=== PATIENT | female | born 1970 | race Two or more races ===

== ENCOUNTER 2017-08-27 18:35 | Emergency (ER) | payer MEDICAID ==
[~2017-08-27] VITALS: Ht 160 cm; Wt 80.7 kg
--- NOTE | 2017-08-27 18:41 | NUR ---
BB [employer]ILY [employer]BER FOR SOB, COUGH, FEVER, LEFT EAR PAIN X 2 DAYS, PT TOOK TYLENOL AT 0300PM. NOTED WITH ORAL TEMP- 100.7 'F. PATIENT AMBULATORY TO ED BED 08. NAD. VSS RR EVEN AND UNLABORED. SKIN IS WARM AND NON DIAPHRORETIC. PENDING ER MD EVALUATION
--- NOTE | 2017-08-27 19:05 | NUR ---
PT CAME FROM C/O SHORTNESS OF BREATH/ASTHMA, A/O X 4, BREATHING EVEN, LUNG SOUNDS DIMINISHED BILATERALLY POSTERIOR FIELD, INSP/EXPR WHEEZING HEARD, SKIN WARM/DRY. NO C/O PAIN AT THIS TIME
[2017-08-27] MEDS ORDERED: methylPREDNISolone SOD SUCC 125 MG/2ML VIAL ONE (19:07)
[2017-08-27] MEDS: IPRATROPIUM NEB FS 0.5 MG/2.5 ML AMPUL.NEB NEB ONE (19:07)
[2017-08-27] MEDS: ALBUTEROL FS 2.5 MG/3 ML VIAL.NEB CONTNEB ONE (19:07)
[2017-08-27 19:17] LABS: BASOPHILS % (AUTO) 0.5 % (0.0-2.0); EOSINOPHILS # (AUTO) 0.1 /CMM (0.0-0.7); EOSINOPHILS % (AUTO) 2.5 % (0.0-6.0); HEMATOCRIT 38 % (33-45); HEMOGLOBIN 12.9 g/dL (11.5-14.8); LYMPHOCYTES # (AUTO) 0.8 /CMM (0.8-4.8); LYMPHOCYTES % (AUTO) 14.2 % (20.0-44.0); MEAN CORPUSCULAR HEMOGLOBIN 28 PG (26.0-33.0); MEAN CORPUSCULAR HGB CONC 34 g/dl (31.0-36.0); MEAN CORPUSCULAR VOLUME 83 fL (82-100); MONOCYTES # (AUTO) 0.8 /CMM (0.1-1.30); MONOCYTES % (AUTO) 14.1 % (2.0-12.0); NEUTROPHILS # (AUTO) 4.1 /CMM (1.8-8.9); NEUTROPHILS % (AUTO) 68.7 % (43.0-81.0); PLATELET COUNT (AUTO) 198 /CMM (150-450); RDW COEFFICIENT OF VARIATION 13.4 (11.5-15.0); RED BLOOD CELL COUNT(AUTO) 4.54 MIL/uL (4.0-5.2); WHITE BLOOD COUNT (AUTO) 5.8 K/uL (4.3-11.0)
[2017-08-27] MEDS ORDERED: IPRATROPIUM NEB FS 0.5 MG/2.5 ML AMPUL.NEB ONE (19:17)
[2017-08-27] MEDS ORDERED: ALBUTEROL FS 2.5 MG/3 ML VIAL.NEB ONE (19:17)
[2017-08-27] MEDS: methylPREDNISolone SOD SUCC 125 MG/2ML VIAL IV ONE (19:18)
[2017-08-27 19:28] LABS: CALCIUM, SERUM 8.7 mg/dL (8.5-10.1); CREATININE 0.7 mg/dL (0.6-1.3); POTASSIUM 3.3 mmol/L (3.5-5.1)
--- NOTE | 2017-08-27 19:30 | NUR ---
PT BECAME LETHARGIC INCREASED DIAPHORESIS, HR 71 BP 76/45, ER MD HU MADE AWARE, ORDERS TO FOLLOW
[2017-08-27] MEDS: IV NS 0.9% 1,000 ML BAG IV ONE (19:31)
--- NOTE | 2017-08-27 19:31 | NUR ---
POCT BLOOD GLUCOSE 110
--- NOTE | 2017-08-27 20:12 | NUR ---
patient family refuse ct brain wo dr duran aware
--- NOTE | 2017-08-27 20:20 | NUR ---
ER MD HU BEDSIDE TO EXPLAIN TO PT DESIRE TO ADMIT, PT REFUSE TO BE ADMITTED. PT EDUCATED BY MD ABOUT RISKS OF LEAVING AGAINST MEDICAL ADVISE, PT VERBALIZED UNDERSTANDING, AMA FORM SIGNED.
--- NOTE | 2017-08-27 20:23 | NUR ---
PT SITTING IN BED, BREATHING UNLABORED, SKIN WARM/DIAPHORETIC, NO C/O PAIN, PT UPDATED ON PLAN OF CARE TO ADMIT
--- NOTE | 2017-08-27 20:26 | NUR ---
CALLED NURSING SUP. FOR MS BED
[2017-08-27 20:37] VITALS: BP 126/71
[2017-08-27 21:04] LABS: TROPONIN I < 0.017 ng/mL (0.00-0.056)
[2017-08-27 21:09] LABS: B-TYPE NATRIURETIC PEPTIDE 29 PG/ML (0-125); INR 0.93 (0.87-1.13)
== END 2017-08-27 19:04 | disposition left against medical advice (07) ==
LOC: ER 18:38
DX: J45.901 Unspecified asthma with (acute) exacerbation (principal); Z86.73 Personal history of transient ischemic attack (TIA), and cerebral infarction without residual deficits; Z88.6 Allergy status to analgesic agent
CPT/HCPCS: 36415; 71045-TC; 80048-TC; 82962-TC; 83605-TC; 83880; 84484-TC; 85025-TC; 85730-TC; A4606; J2930; Z7610

== ENCOUNTER 2022-03-20 15:58 | Emergency (ER) | payer MEDICAID, OTHER ==
[~2022-03-20] VITALS: Ht 160 cm; Wt 98.4 kg
--- NOTE | 2022-03-20 16:00 | NUR ---
FROILAN 89 FEELING WEAK; PT WAS CLEANING A HOUSE AND FELT HOT, FOUND ON THE FLOOR, PT STATES HER HEAD HURTS, BLOOD SUGAR 119. TO ER BED 10.
--- NOTE | 2022-03-20 16:08 | NUR ---
IV LINE ESTABLISHED; BLOOD DRAWN AND SENT TO LAB.
--- NOTE | 2022-03-20 16:11 | NUR ---
TECH AT BEDSIDE FOR EKG
[2022-03-20] MEDS: IV NS 0.9% 1,000 ML BAG IV ONE (16:16)
[2022-03-20] MEDS ORDERED: TOPI25TA49 PO (16:17)
[2022-03-20] MEDS ORDERED: LEVE500T20 PO (16:17)
--- NOTE | 2022-03-20 16:20 | NUR ---
PT TAKEN TO RADIOLOGY VIA ELEANOR
[2022-03-20 16:27] LABS: BASOPHILS % (AUTO) 0.4 % (0.0-2.0); EOSINOPHILS % (AUTO) 2.5 % (0.0-6.0); HEMATOCRIT 39 % (33-45); HEMOGLOBIN 12.4 g/dL (11.5-14.8); LYMPHOCYTES # (AUTO) 1.9 K/uL (0.8-4.8); LYMPHOCYTES % (AUTO) 21.4 % (20.0-44.0); MEAN CORPUSCULAR HGB CONC 32 g/dl (31.0-36.0); MEAN CORPUSCULAR VOLUME 83 fL (82-100); MONOCYTES # (AUTO) 0.6 K/uL (0.1-1.30); MONOCYTES % (AUTO) 6.9 % (2.0-12.0); NEUTROPHILS # (AUTO) 6.2 K/uL (1.8-8.9); NEUTROPHILS % (AUTO) 68.8 % (43.0-81.0); PLATELET COUNT (AUTO) 217 K/uL (150-450); RED BLOOD CELL COUNT(AUTO) 4.67 MIL/uL (4.0-5.2); WHITE BLOOD COUNT (AUTO) 8.9 K/uL (4.3-11.0)
--- NOTE | 2022-03-20 16:30 | NUR ---
PT BACK FROM RADIOLOGY
[2022-03-20 16:41] LABS: CALCIUM, SERUM 8.5 mg/dL (8.5-10.1); CARBON DIOXIDE 22 mmol/L (21-32); CHLORIDE 103 mmol/L (98-107); CREATININE 0.5 mg/dL (0.6-1.3); GLUCOSE 146 mg/dL (74-106); SODIUM SERUM 134 mmol/L (136-145); UREA NITROGEN, BLOOD 13 mg/dL (7-18)
[2022-03-20] MEDS ORDERED: GABA-532 PO (16:44)
[2022-03-20] MEDS ORDERED: LEVO50TA8 PO (16:44)
[2022-03-20 16:50] LABS: THYROID STIMULATING HORMONE 0.995 uIU/mL (0.358-3.74)
[2022-03-20 16:52] LABS: ALBUMIN 3.8 g/dL (3.4-5.0); ALCOHOL, BLOOD < 3 mg/dL (0-0); ALKALINE PHOSPHATASE 80 U/L (46-116); BILIRUBIN,TOTAL 0.6 mg/dL (0.2-1.0); TOTAL PROTEIN, SERUM 7.3 g/dL (6.4-8.2)
[2022-03-20 17:04] LABS: SERUM AMMONIA 6 umol/L (11-32)
[2022-03-20 17:22] LABS: ALANINE AMINOTRANSFERASE 21 U/L (12-78); ASPARTATE AMINOTRANSFERASE 13 U/L (15-37); BILIRUBIN,DIRECT 0.1 mg/dL (0.0-0.2)
--- NOTE | 2022-03-20 17:40 | NUR ---
URINE SAMPLE COLLECTED AND SENT TO LAB
[2022-03-20 18:45] LABS: BILIRUBIN,URINE NEGATIVE (NEGATIVE); COLOR,URINE YELLOW (YELLOW); LEUKOCYTE ESTERASE ,URINE NEGATIVE (NEGATIVE); NITRITE, URINE NEGATIVE (NEGATIVE); PROTEIN,URINE NEGATIVE (NEGATIVE); UGLUCOSE NEGATIVE (NEGATIVE); UROBILINOGEN,URINE 0.2 EU/dL (0.2)
--- NOTE | 2022-03-20 19:52 | NUR ---
PT FOUNDSMLEEPING COMOFRTABLY BREATHING UNLABORED. PT APPEARS WEAK AND LETHARGIC, SLOW TO ANSWER QUESTIONS, BUT NO CONFUSION. REMAINS ON MONITOR AND V/S WNL.
--- NOTE | 2022-03-20 22:17 | NUR ---
Patient discharged to home in stable condition. Written and verbal after care instructions given. Patient verbalizes understanding of instruction. IV removed. Catheter intact and site benign. Pressure and 4x4 applied to site. No bleeding noted.
[2022-03-20 22:19] VITALS: BP 125/78
== END 2022-03-20 22:20 | disposition home or self-care (01) ==
LOC: ER 16:00
DX: R41.82 Altered mental status, unspecified (principal); F12.90 Cannabis use, unspecified, uncomplicated; J45.909 Unspecified asthma, uncomplicated; Z86.69 Personal history of other diseases of the nervous system and sense organs; Z85.850 Personal history of malignant neoplasm of thyroid; Z88.0 Allergy status to penicillin; Z88.8 Allergy status to other drugs, medicaments and biological substances; Z79.899 Other long term (current) drug therapy
CPT/HCPCS: 99285; 96360; 51701; 93005; 71045; 72125; 70450; 72131; 82140; 85025; 80048; 80076; 81003; 36415; 84443; 84484; 85730; 82962; 80320; 80307; J7030; G0480